=== PATIENT | male | born 1940 | race American Indian/Alaskan Native ===

== ENCOUNTER 2019-04-13 10:54 | Inpatient (IN) | payer MEDICARE ==
[2019-04-13] MEDS ORDERED: NACL 0.9% 1000 ML 1,000 ML IV ONE ×4 (10:58→16:23)
[2019-04-13] MEDS ORDERED: NACL 0.9% 1000 ML 2,000 ML ONE (11:01)
--- NOTE | 2019-04-13 11:06 | Emergency Department Report ---
HPI - General Time Seen by Provider: 04/13/19 10:57 - HPI HPI: Room 21 The patient is 78-year-old male presented with a chief complaint of unresponsiveness. The patient has a history of Alzheimer's is reportedly on hospice. Patient presents from hospice with a signed DO NOT RESUSCITATE dated 03/09/2018. Per EMS staff noticed the patient was unresponsive this morning and family request the patient be transported to the emergency department. The patient is unresponsive and does not respond to sternal rub Location: [See above] Duration: [See above] Quality: [See above] Severity: [See above] Timing: [See above] Context: [See above] Modifying factors: [See above] Associated signs and symptoms: [see above] ED Past Medical Hx - Past Medical History Hx Hypertension: Yes Additional medical history: dementia - Surgical History Past Surgical History?: No - Family History Family history: no significant - Social History Smoking Status: Unknown if ever smoked - Medications Home Medications: Home Medications Medication Instructions Recorded Confirmed Last Taken Type ALPRAZolam [Xanax TAB] 1 mg PO QHS PRN MDD 2 04/13/19 04/13/19 04/12/19 History Aspirin [Aspirin BABY CHEW TAB] 81 mg PO QDAY 04/13/19 04/13/19 04/12/19 History Ferrous Sulfate [Iron 325 MG] 325 mg PO QDAY 04/13/19 04/13/19 04/12/19 History Hyoscyamine Subl [Levsin Sl 0.125 0.125 mg SL Q4HR PRN 04/13/19 04/13/19 04/12/19 History TAB] Morphine [Morphine ORAL SOLN 10 10 mg PO Q2HR 04/13/19 04/13/19 04/12/19 History MG/5 ML] Potassium Chloride [K-Dur] 20 meq PO QDAY 04/13/19 04/13/19 04/12/19 History Pravastatin [Pravachol] 40 mg PO QHS 04/13/19 04/13/19 04/12/19 History Promethazine [Phenergan] 25 mg PO Q4HR PRN 04/13/19 04/13/19 04/12/19 History QUEtiapine [SEROquel] 25 mg PO QDAY 04/13/19 04/13/19 04/12/19 History Quetiapine Fumarate [SEROquel] 50 mg PO QDAY 04/13/19 04/13/19 04/12/19 History hydroCHLOROthiazide [HCTZ] 25 mg PO QDAY 04/13/19 04/13/19 04/12/19 History traMADol [Ultram] 50 mg PO Q6HR PRN 04/13/19 04/13/19 04/12/19 History traZODone [Desyrel] 100 mg PO QHS 04/13/19 04/13/19 04/12/19 History ED Review of Systems ROS: Stated complaint: UNRESPONSIVE Other details as noted in HPI Comment: Unobtainable due to pts medical conditions Physical Exam - Physical Exam Physical Exam: GENERAL: The patient is well-developed well-nourished male on a stretcher unresponsive. [] HEENT: Normocephalic. Atraumatic. NECK: Trachea midline CHEST/LUNGS: Clear to auscultation. There is no respiratory distress noted. HEART/CARDIOVASCULAR: Regular. There is tachycardia. There is no gallop rub or murmur. ABDOMEN: Abdomen is soft, nontender. Patient has normal bowel sounds. There is no abdominal distention. SKIN: There is no rash. There is no edema. There is no diaphoresis. NEURO: The patient is grossly obtunded. Unresponsive. GCS 4 MUSCULOSKELETAL: There is no evidence of acute injury. ED Course - Reevaluation(s) Reevaluation #1: 04/13/19 12:59 Case discussed with patient's brother who is power of civil litigation attorney over the phone and remainder family at bedside including sister who has signed the DO NOT RESUSCITATE paperwork. Family is in agreement and they will like to revoke DO NOT RESUSCITATE and make the patient for "subsequently the patient was intubated by myself using RSI - Central Line Placement Right IJ Time Out Performed: Yes Patient Placed on Monitor/Pulse Ox: Yes MD Prep: mask, gown, gloves Central Line Prep: Chlorhexidine scrub Local Anesthesia Used: Lidocaine 1% Amount of Anesthesia Used (mls): 1 Ultrasound Used for Placement: Yes Central Line Lumen Inserted: triple Bloods Obtained for Lab: No Central Line Position: good blood return, all ports aspirated, flus, sutured in place with 2-0 Dressing Applied: Tegaderm Post Procedure X-Ray: tip of catheter in good p Patient Tolerated Procedure: well, no complications Complications: none - Intubation Sedative: Etomidate Mg Given: 20 Paralytic: Succinylcholine Mg Given: 100 (lidocaine 100 mg IV also administered) Laryngoscope: Peter Size: 3 ET Tube Size: 8 Tube Secured Depth (cm): 24 Tube Secured Location: lips Tube Placement Confirmation: visualized tube passing t, equal breath sounds bilat, no breath sounds over epi, confirmation by capnometr Patient Tolerated Procedure: well, no complications Intubation Complications: none ED Medical Decision Making - Lab Data Result diagrams: 04/13/19 11:22 04/13/19 12:59 Laboratory Tests 04/13/19 04/13/19 04/13/19 11:22 12:58 12:59 WBC 11.7 H RBC 6.12 H Hgb 16.6 H Hct 53.5 H MCV 87 MCH 27 L MCHC 31 L RDW 18.0 H Plt Count 232 Add Manual Diff Complete Total Counted 100 Seg Neuts % (Manual) 83.0 H Band Neutrophils % 0 Lymphocytes % (Manual) 15.0 Reactive Lymphs % (Man) 0 Monocytes % (Manual) 1.0 Eosinophils % (Manual) 0 Basophils % (Manual) 0 Metamyelocytes % 1.0 Myelocytes % 0 Promyelocytes % 0 Blast Cells % 0 Nucleated RBC % Not Reportable Seg Neutrophils # Man 9.7 H Band Neutrophils # 0.0 Lymphocytes # (Manual) 1.8 Abs React Lymphs (Man) 0.0 Monocytes # (Manual) 0.1 Eosinophils # (Manual) 0.0 Basophils # (Manual) 0.0 Metamyelocytes # 0.1 Myelocytes # 0.0 Promyelocytes # 0.0 Blast Cells # 0.0 WBC Morphology Not Reportable Hypersegmented Neuts Not Reportable Hyposegmented Neuts Not Reportable Hypogranular Neuts Not Reportable Smudge Cells Not Reportable Toxic Granulation Not Reportable Toxic Vacuolation Not Reportable Dohle Bodies Not Reportable Pelger-Huet Anomaly Not Reportable Jose Rods Not Reportable Platelet Estimate Consistent w auto Clumped Platelets Not Reportable Plt Clumps, EDTA Not Reportable Large Platelets Not Reportable Giant Platelets Not Reportable Platelet Satelliting Not Reportable Plt Morphology Comment Not Reportable RBC Morphology Not Reportable Dimorphic RBCs Not Reportable Polychromasia Not Reportable Hypochromasia Not Reportable Poikilocytosis Few Anisocytosis Few Microcytosis Not Reportable Macrocytosis Not Reportable Spherocytes Not Reportable Pappenheimer Bodies Not Reportable Sickle Cells Not Reportable Target Cells Not Reportable Tear Drop Cells Not Reportable Ovalocytes Not Reportable Helmet Cells Not Reportable [place] Bodies Not Reportable [place] Rings Not Reportable [place] Cells Not Reportable Bite Cells Not Reportable Crenated Cell Not Reportable Elliptocytes Few Acanthocytes (Spur) Not Reportable Rouleaux Not Reportable Hemoglobin C Crystals Not Reportable Schistocytes Not Reportable Malaria parasites Not Reportable Barney Bodies Not Reportable Hem Pathologist Commnt No PT 27.2 H INR 2.58 H APTT 70.1 H* POC ABG pH POC ABG pCO2 POC ABG pO2 POC ABG HCO3 POC ABG Total CO2 POC ABG O2 Sat POC ABG Base Excess FiO2 Sodium 148 H Potassium 5.0 Chloride 105.5 Carbon Dioxide 12 L Anion Gap 36 BUN 55 H Creatinine 3.9 H Estimated GFR 18 BUN/Creatinine Ratio 14 Glucose 93 Lactic Acid Calcium 8.0 L Magnesium 2.90 H Total Bilirubin 1.40 H AST 471 H ALT 306 H Alkaline Phosphatase 76 Ammonia Total Creatine Kinase 97529 H CK-MB (CK-2) 91.2 H CK-MB (CK-2) Rel Index 0.6 Troponin T 0.108 H* Total Protein 5.3 L Albumin 2.6 L Albumin/Globulin Ratio 1.0 Triglycerides 65 Cholesterol 113 LDL Cholesterol Direct 69 HDL Cholesterol 44 Cholesterol/HDL Ratio 2.56 Urine Color Urine Turbidity Urine pH Ur Specific [place] Urine Protein Urine Glucose (UA) Urine Ketones Urine Blood Urine Nitrite Urine Bilirubin Urine Urobilinogen Ur Leukocyte Esterase Urine WBC (Auto) Urine RBC (Auto) Urine Bacteria (Auto) Blood Type Antibody Screen 04/13/19 04/13/19 04/13/19 12:59 12:59 13:07 WBC RBC Hgb Hct MCV MCH MCHC RDW Plt Count Add Manual Diff Total Counted Seg Neuts % (Manual) Band Neutrophils % Lymphocytes % (Manual) Reactive Lymphs % (Man) Monocytes % (Manual) Eosinophils % (Manual) Basophils % (Manual) Metamyelocytes % Myelocytes % Promyelocytes % Blast Cells % Nucleated RBC % Seg Neutrophils # Man Band Neutrophils # Lymphocytes # (Manual) Abs React Lymphs (Man) Monocytes # (Manual) Eosinophils # (Manual) Basophils # (Manual) Metamyelocytes # Myelocytes # Promyelocytes # Blast Cells # WBC Morphology Hypersegmented Neuts Hyposegmented Neuts Hypogranular Neuts Smudge Cells Toxic Granulation Toxic Vacuolation Dohle Bodies Pelger-Huet Anomaly Jose Rods Platelet Estimate Clumped Platelets Plt Clumps, EDTA Large Platelets Giant Platelets Platelet Satelliting Plt Morphology Comment RBC Morphology Dimorphic RBCs Polychromasia Hypochromasia Poikilocytosis Anisocytosis Microcytosis Macrocytosis Spherocytes Pappenheimer Bodies Sickle Cells Target Cells Tear Drop Cells Ovalocytes Helmet Cells [place] Bodies [place] Rings Sun Cells Bite Cells Crenated Cell Elliptocytes Acanthocytes (Spur) Rouleaux Hemoglobin C Crystals Schistocytes Malaria parasites Barney Bodies Hem Pathologist Commnt PT INR APTT POC ABG pH POC ABG pCO2 POC ABG pO2 POC ABG HCO3 POC ABG Total CO2 POC ABG O2 Sat POC ABG Base Excess FiO2 Sodium Potassium Chloride Carbon Dioxide Anion Gap BUN Creatinine Estimated GFR BUN/Creatinine Ratio Glucose Lactic Acid 15.20 H* Calcium Magnesium Total Bilirubin AST ALT Alkaline Phosphatase Ammonia 274.0 H Total Creatine Kinase CK-MB (CK-2) CK-MB (CK-2) Rel Index Troponin T Total Protein Albumin Albumin/Globulin Ratio Triglycerides Cholesterol LDL Cholesterol Direct HDL Cholesterol Cholesterol/HDL Ratio Urine Color Urine Turbidity Urine pH Ur Specific [place] Urine Protein Urine Glucose (UA) Urine Ketones Urine Blood Urine Nitrite Urine Bilirubin Urine Urobilinogen Ur Leukocyte Esterase Urine WBC (Auto) Urine RBC (Auto) Urine Bacteria (Auto) Blood Type B POSITIVE Antibody Screen Negative 04/13/19 04/13/19 04/13/19 13:15 14:35 15:52 WBC RBC Hgb Hct MCV MCH MCHC RDW Plt Count Add Manual Diff Total Counted Seg Neuts % (Manual) Band Neutrophils % Lymphocytes % (Manual) Reactive Lymphs % (Man) Monocytes % (Manual) Eosinophils % (Manual) Basophils % (Manual) Metamyelocytes % Myelocytes % Promyelocytes % Blast Cells % Nucleated RBC % Seg Neutrophils # Man Band Neutrophils # Lymphocytes # (Manual) Abs React Lymphs (Man) Monocytes # (Manual) Eosinophils # (Manual) Basophils # (Manual) Metamyelocytes # Myelocytes # Promyelocytes # Blast Cells # WBC Morphology Hypersegmented Neuts Hyposegmented Neuts Hypogranular Neuts Smudge Cells Toxic Granulation Toxic Vacuolation Dohle Bodies Pelger-Huet Anomaly Jose Rods Platelet Estimate Clumped Platelets Plt Clumps, EDTA Large Platelets Giant Platelets Platelet Satelliting Plt Morphology Comment RBC Morphology Dimorphic RBCs Polychromasia Hypochromasia Poikilocytosis Anisocytosis Microcytosis Macrocytosis Spherocytes Pappenheimer Bodies Sickle Cells Target Cells Tear Drop Cells Ovalocytes Helmet Cells [place] Bodies [place] Rings Sun Cells Bite Cells Crenated Cell Elliptocytes Acanthocytes (Spur) Rouleaux Hemoglobin C Crystals Schistocytes Malaria parasites Barney Bodies Hem Pathologist Commnt PT INR APTT POC ABG pH 7.143 L POC ABG pCO2 31.8 L POC ABG pO2 202 H POC ABG HCO3 10.9 POC ABG Total CO2 12 POC ABG O2 Sat 99 POC ABG Base Excess -18 FiO2 100 Sodium Potassium Chloride Carbon Dioxide Anion Gap BUN Creatinine Estimated GFR BUN/Creatinine Ratio Glucose Lactic Acid 14.00 H* Calcium Magnesium Total Bilirubin AST ALT Alkaline Phosphatase Ammonia Total Creatine Kinase CK-MB (CK-2) CK-MB (CK-2) Rel Index Troponin T Total Protein Albumin Albumin/Globulin Ratio Triglycerides Cholesterol LDL Cholesterol Direct HDL Cholesterol Cholesterol/HDL Ratio Urine Color Reba Urine Turbidity Cloudy Urine pH 5.0 Ur Specific [place] 1.018 Urine Protein 100 mg/dl Urine Glucose (UA) Neg Urine Ketones Neg Urine Blood Mod Urine Nitrite Neg Urine Bilirubin Neg Urine Urobilinogen 4.0 Ur Leukocyte Esterase Neg Urine WBC (Auto) 4.0 Urine RBC (Auto) 80.0 Urine Bacteria (Auto) 1+ Blood Type Antibody Screen - EKG Data -: EKG Interpreted by Me EKG shows normal: sinus rhythm Rate: bradycardia (37 bpm) - EKG Data When compared to previous EKG there are: previous EKG unavailable Interpretation: other (prolonged QT. Right bundle branch block) - Radiology Data Radiology results: report reviewed (CT head, chest x-ray), image reviewed (chest x-ray, CT head) interpreted by me: Chest x-ray-ET tube in appropriate position. Central line in appropriate position [facility] [address] [place] [address] Cat Scan Report Signed Patient: CRISTY LOZADA MR#: [id number] [birth year] : 1940 Acct:[id number] Age/Sex: 78 / M ADM Date: 04/13/19 Loc: ED Attending Dr: Ordering Physician: CARINA COLORADO MD Date of Service: 04/13/19 Procedure(s): CT head/brain wo con Accession Number(s): [id number] cc: CARINA COLORADO MD CT head without contrast Clinical history: Unresponsive FINDINGS: There is mild cerebral white matter disease most consistent with microvascular angiopathy. There is encephalomalacia involving posterior right cerebellum most consistent with old infarct at. There is moderate cerebral atrophy with associated prominence of the ventricular system. There is no clear CT evidence of acute intracranial hemorrhage or significant mass effect. There is minimal mucosal thickening along the visualized posterior right maxillary sinus. All CT scans at this location are performed using the CT dose reduction for ALARA by means of automated exposure control. 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 There is no CT evidence of acute intracranial hemorrhage. There is moderate cerebral atrophy. Signer Name: Ezra Uriarte MD Signed: 04/13/2019 4:27 PM Workstation Name: [id number] Transcribed By: MR Dictated By: Ezra Uriarte MD Electronically Authenticated By: Ezra Uriarte MD Signed Date/Time: 04/13/191626 DD/ 21 TD/TT: [facility] [address] [place] [address] XRay Report Signed Patient: CRISTY LOZADA MR#: [id number] [birth year] : 1940 Acct:[id number] Age/Sex: 78 / M ADM Date: 04/13/19 Loc: ED Attending Dr: Ordering Physician: CARINA COLORADO MD Date of Service: 04/13/19 Procedure(s): XR chest 1V ap Accession Number(s): [id number] cc: CARINA COLORADO MD Fluoro Time In Minutes: CHEST 1 VIEW INDICATION / CLINICAL INFORMATION: s/p intubation and CVL placement. COMPARISON: None available. FINDINGS: SUPPORT DEVICES: Endotracheal tube, right central venous line HEART / MEDIASTINUM: No significant abnormality. LUNGS / PLEURA: No significant pulmonary or pleural abnormality. No pneumothorax. ADDITIONAL FINDINGS: No significant additional findings. IMPRESSION: Satisfactory placement of endotracheal tube and right central venous line. No acute disease. No evidence of a pneumothorax Signer Name: Modesto Dalton MD FACR Signed: 04/13/2019 2:31 PM Workstation Name: [email or web address] Transcribed By: MS Dictated By: Modesto Dalton MD Electronically Authenticated By: Modesto Dalton MD Signed Date/Time: 04/13/19 143 DD/ 29 TD/TT: - Differential Diagnosis sepsis, UTI, dehydration, hypovolemia Critical Care Time: Yes Critical care time in (mins) excluding proc time.: 80 Critical care attestation.: If time is entered above; I have spent that time in minutes in the direct care of this critically ill patient, excluding procedure time. ED Disposition Clinical Impression: Altered mental status, Hepatic encephalopathy, Acute renal failure, Hypotension, Rhabdomyolysis, Transaminitis Disposition: OP ADMIT IP TO THIS HOSP Is pt being admited?: Yes Does the pt Need Aspirin: No Condition: Serious Referrals: PRIMARY CARE, [Primary Care Provider] - 3-5 Days Time of Disposition: 16:43 (hospitalist paged (Dr Villalta))
[2019-04-13 11:44] LABS: Mean Corpuscular HGB Conc 31 % (32-34); Mean Corpuscular Volume 87 fl (84-94); Platelet Count 232 K/mm3 (140-440); Red Blood Count 6.12 M/mm3 (3.65-5.03)
[2019-04-13] MEDS ORDERED: INTROPIN DRIP 800 MG/D5W 250 ML 800 MG/250 ML BAG IV ONE ×3 (11:48→20:16)
[2019-04-13 11:55] LABS: Hematocrit 53.5 % (35.5-45.6); Hemoglobin 16.6 gm/dl (11.8-15.2)
[2019-04-13] MEDS: INTROPIN DRIP 800 MG/D5W 250 ML 800 MG/250 ML BAG IV ONE ×2 (12:00→20:30)
[2019-04-13] MEDS: ATROPINE IV ONE ×2 (12:15→14:22)
[2019-04-13 13:43] LABS: INR 2.58 (0.87-1.13)
[2019-04-13 13:43] LABS: Basophils % (Manual) 0 % (0.0-1.8); Eosinophils % (Manual) 0 % (0.0-4.3); Total Cells Counted 100
[2019-04-13 13:44] LABS: Anisocytosis Few; Platelet Estimate Consistent w Auto; Poikilocytosis Few
[2019-04-13 13:49] LABS: Creatine Kinase MB 91.2 ng/mL (0.0-4.0)
[2019-04-13 13:50] LABS: Albumin 2.6 g/dL (3.9-5)
[2019-04-13 13:54] LABS: Partial Thromboplastin Time 70.1 Sec. (24.2-36.6)
[2019-04-13] MEDS ORDERED: LEVOPHED DRIP 4 MG/NS 250 ML 4 MG/250 ML BAG IV ONE ×2 (13:58→22:46)
[2019-04-13] MEDS ORDERED: CEPHULAC FEEDTUBE ONE (14:02)
[2019-04-13 14:10] LABS: Bacteria,Urine 1+ /HPF (Negative); Bilirubin,Urine NEG (Negative); Blood,Urine MOD (Negative); Color,Urine Amber (Yellow)
[2019-04-13 14:18] LABS: Chol/HDL Ratio 2.56 %
--- NOTE | 2019-04-13 14:35 | XRay Report ---
CHEST 1 VIEW INDICATION / CLINICAL INFORMATION: s/p intubation and CVL placement. COMPARISON: None available. FINDINGS: SUPPORT DEVICES: Endotracheal tube, right central venous line HEART / MEDIASTINUM: No significant abnormality. LUNGS / PLEURA: No significant pulmonary or pleural abnormality. No pneumothorax. ADDITIONAL FINDINGS: No significant additional findings. IMPRESSION: Satisfactory placement of endotracheal tube and right central venous line. No acute disease. No evide nce of a pneumothorax Signer Name: Modesto Dalton MD FACR Signed: 04/13/2019 2:31 PM Workstation Name: [id number]
[2019-04-13] MEDS: LEVOPHED DRIP 4 MG/NS 250 ML 4 MG/250 ML BAG IV SCH ×3 (14:40→20:29)
--- NOTE | 2019-04-13 16:31 | Cat Scan Report ---
CT head without contrast Clinical history: Unresponsive FINDINGS: There is mild cerebral white matter disease most consistent with microvascular angiopathy. There is encephalomalacia involving posterior right cerebellum most consistent with old infarct at. T here is moderate cerebral atrophy with associated prominence of the ventricular system. There is no c lear CT evidence of acute intracranial hemorrhage or significant mass effect. There is minimal mucosa l thickening along the visualized posterior right maxillary sinus. All CT scans at this location are performed using the CT dose reduction for ALARA by means of automated exposure control. 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 There is no CT evidence of acute intracranial hemorrhage. There is moderate cerebral atrophy. Signer Name: Ezra Uriarte MD Signed: 04/13/2019 4:27 PM Workstation Name: [id number]
[2019-04-13] MEDS ORDERED: ROCEPHIN/NS 2 GM/100 ML 2 GM/100 ML BAG IV ONE (16:41)
[2019-04-13 16:43] LABS: Free T4 (Free Thyroxine) 0.94 ng/dL (0.76-1.46)
--- NOTE | 2019-04-13 17:05 | History and Physical Report ---
History of Present Illness Chief complaint: He is confused,and not talking History of present illness: 78 YO Male currently under the care of Hospice with End Stage Liver Disease, Dementia, HTN presents to ED for evaluation. Pt family reports desire to Revoke Hospice benefit and acknowledges revocation of hospice befefit, and rescind DNR and wish to make the patient Full Code and pursue aggressive medical care. Pt seen and evaluated by hospice nurse today and was found to be in distress. EMS notified, and upon arrival the patient was found to be in distress, and transported to [facility]. Pt seen and evaluated in ED and found to have Acute Hypoxemic Respiratory Failure, End Stage Liver Disease complicated by Hepatic Encephalopathy, Rhabdomyolysis, Acidosis, Acute Renal Failure, and SIRS. Pt in multiple organ system failure. Pt found to have poor prognosis. Pt intubated and on vent support at time of my exam. No further history obtainable. Pt admitted to ICU. Pulmonary team consulted in ED. Past History Past Medical History: other (Encephalopathy, Hepatic Failure, Debility) Past Surgical History: No surgical history, Other (reviewed) Social history: single. denies: smoking, alcohol abuse, prescription drug abuse Family history: hypertension Medications and Allergies Allergies Allergy/AdvReac Type Severity Reaction Status Date / Time No Known Allergies Allergy Verified 04/13/19 11:04 Home Medications Medication Instructions Recorded Confirmed Last Taken Type ALPRAZolam [Xanax TAB] 1 mg PO QHS PRN MDD 2 04/13/19 04/13/19 04/12/19 History Aspirin [Aspirin BABY CHEW TAB] 81 mg PO QDAY 04/13/19 04/13/19 04/12/19 History Ferrous Sulfate [Iron 325 MG] 325 mg PO QDAY 04/13/19 04/13/19 04/12/19 History Hyoscyamine Subl [Levsin Sl 0.125 0.125 mg SL Q4HR PRN 04/13/19 04/13/19 04/12/19 History TAB] Morphine [Morphine ORAL SOLN 10 10 mg PO Q2HR 04/13/19 04/13/19 04/12/19 History MG/5 ML] Potassium Chloride [K-Dur] 20 meq PO QDAY 04/13/19 04/13/19 04/12/19 History Pravastatin [Pravachol] 40 mg PO QHS 04/13/19 04/13/19 04/12/19 History Promethazine [Phenergan] 25 mg PO Q4HR PRN 04/13/19 04/13/19 04/12/19 History QUEtiapine [SEROquel] 25 mg PO QDAY 04/13/19 04/13/19 04/12/19 History Quetiapine Fumarate [SEROquel] 50 mg PO QDAY 04/13/19 04/13/19 04/12/19 History hydroCHLOROthiazide [HCTZ] 25 mg PO QDAY 04/13/19 04/13/19 04/12/19 History traMADol [Ultram] 50 mg PO Q6HR PRN 04/13/19 04/13/19 04/12/19 History traZODone [Desyrel] 100 mg PO QHS 04/13/19 04/13/19 04/12/19 History Active Meds: Active Medications Dopamine HCl/Dextrose (Intropin Drip 800 Mg/D5w 250 Ml) 800 mg in 250 mls @ 2.126 mls/hr IV TITR ONE; Protocol Stop: 04/18/19 11:24 Last Titration: 04/13/19 14:00 Dose: 20 mcg/kg/min, 21.263 mls/hr Documented by: Norepinephrine (Levophed Drip 4 Mg/Ns 250 Ml) 4 mg in 250 mls @ 7.5 mls/hr IV TITR KELLEN; Protocol Last Titration: 04/13/19 16:59 Dose: 22 mcg/min, 82.5 mls/hr Documented by: Sodium Chloride (Nacl 0.9% 1000 Ml) 1,000 mls @ 150 mls/hr IV ONCE ONE Stop: 04/13/19 23:02 Last Admin: 04/13/19 16:33 Dose: 150 mls/hr Documented by: Ceftriaxone Sodium (Rocephin/Ns 2 Gm/100 Ml) 2 gm in 100 mls @ 200 mls/hr IV ONCE ONE; Protocol Stop: 04/13/19 17:10 Review of Systems ROS unobtainable: due to endotracheal tube, due to mental status Exam - Constitutional Vitals: Temp Pulse Resp BP Pulse Ox 96.9 F L 120 H 19 82/54 75 L 04/13/19 16:09 04/13/19 16:40 04/13/19 16:50 04/13/19 16:50 04/13/19 15:16 General appearance: Present: severe distress - EENT Eyes: Present: miosis - Neck Neck: Present: supple, normal ROM, masses or JVD - Respiratory Respiratory effort: labored Respiratory: bilateral: diminished, rhonchi - Cardiovascular Heart Sounds: Present: S1 & S2. Absent: rub, click - Extremities Extremity abnormal: edema Peripheral Pulses: within normal limits - Abdominal General gastrointestinal: Present: soft, non-tender, non-distended, normal bowel sounds Male genitourinary: Present: normal - Integumentary Integumentary: Present: clear, warm, dry - Musculoskeletal Musculoskeletal: generalized weakness - Psychiatric Psychiatric: no appropriate mood/affect, no intact judgment & insight, no memory intact - Neurologic Neurologic: CNII-XII intact, no gait normal Results - Labs CBC & Chem 7: 04/13/19 11:22 04/13/19 12:59 Labs: Abnormal lab results 04/13/19 04/13/19 04/13/19 Range/Units 11:22 12:58 12:59 WBC 11.7 H (4.5-11.0) K/mm3 RBC 6.12 H (3.65-5.03) M/mm3 Hgb 16.6 H (11.8-15.2) gm/dl Hct 53.5 H (35.5-45.6) % MCH 27 L (28-32) pg MCHC 31 L (32-34) % RDW 18.0 H (13.2-15.2) % Seg Neuts % (Manual) 83.0 H (40.0-70.0) % Seg Neutrophils # Man 9.7 H (1.8-7.7) K/mm3 PT 27.2 H (12.2-14.9) Sec. INR 2.58 H (0.87-1.13) APTT 70.1 H* (24.2-36.6) Sec. POC ABG pH (7.35-7.45) POC ABG pCO2 (35-45) POC ABG pO2 (80-105) Sodium 148 H (137-145) mmol/L Carbon Dioxide 12 L (22-30) mmol/L BUN 55 H (9-20) mg/dL Creatinine 3.9 H (0.8-1.5) mg/dL Lactic Acid (0.7-2.0) mmol/L Calcium 8.0 L (8.4-10.2) mg/dL Magnesium 2.90 H (1.7-2.3) mg/dL Total Bilirubin 1.40 H (0.1-1.2) mg/dL AST 471 H (5-40) units/L ALT 306 H (7-56) units/L Ammonia (25-60) umol/L Total Creatine Kinase 96945 H (55-170) units/L CK-MB (CK-2) 91.2 H (0.0-4.0) ng/mL Troponin T 0.108 H* (0.00-0.029) ng/mL Total Protein 5.3 L (6.3-8.2) g/dL Albumin 2.6 L (3.9-5) g/dL TSH (0.270-4.200) mlU/mL 04/13/19 04/13/19 04/13/19 Range/Units 12:59 12:59 14:35 WBC (4.5-11.0) K/mm3 RBC (3.65-5.03) M/mm3 Hgb (11.8-15.2) gm/dl Hct (35.5-45.6) % MCH (28-32) pg MCHC (32-34) % RDW (13.2-15.2) % Seg Neuts % (Manual) (40.0-70.0) % Seg Neutrophils # Man (1.8-7.7) K/mm3 PT (12.2-14.9) Sec. INR (0.87-1.13) APTT (24.2-36.6) Sec. POC ABG pH (7.35-7.45) POC ABG pCO2 (35-45) POC ABG pO2 (80-105) Sodium (137-145) mmol/L Carbon Dioxide (22-30) mmol/L BUN (9-20) mg/dL Creatinine (0.8-1.5) mg/dL Lactic Acid 15.20 H* (0.7-2.0) mmol/L Calcium (8.4-10.2) mg/dL Magnesium (1.7-2.3) mg/dL Total Bilirubin (0.1-1.2) mg/dL AST (5-40) units/L ALT (7-56) units/L Ammonia 274.0 H (25-60) umol/L Total Creatine Kinase (55-170) units/L CK-MB (CK-2) (0.0-4.0) ng/mL Troponin T (0.00-0.029) ng/mL Total Protein (6.3-8.2) g/dL Albumin (3.9-5) g/dL TSH 11.630 H (0.270-4.200) mlU/mL 04/13/19 04/13/19 04/13/19 Range/Units 14:35 15:52 16:12 WBC (4.5-11.0) K/mm3 RBC (3.65-5.03) M/mm3 Hgb (11.8-15.2) gm/dl Hct (35.5-45.6) % MCH (28-32) pg MCHC (32-34) % RDW (13.2-15.2) % Seg Neuts % (Manual) (40.0-70.0) % Seg Neutrophils # Man (1.8-7.7) K/mm3 PT (12.2-14.9) Sec. INR (0.87-1.13) APTT (24.2-36.6) Sec. POC ABG pH 7.143 L (7.35-7.45) POC ABG pCO2 31.8 L (35-45) POC ABG pO2 202 H (80-105) Sodium (137-145) mmol/L Carbon Dioxide (22-30) mmol/L BUN (9-20) mg/dL Creatinine (0.8-1.5) mg/dL Lactic Acid 14.00 H* 13.80 H* (0.7-2.0) mmol/L Calcium (8.4-10.2) mg/dL Magnesium (1.7-2.3) mg/dL Total Bilirubin (0.1-1.2) mg/dL AST (5-40) units/L ALT (7-56) units/L Ammonia (25-60) umol/L Total Creatine Kinase (55-170) units/L CK-MB (CK-2) (0.0-4.0) ng/mL Troponin T (0.00-0.029) ng/mL Total Protein (6.3-8.2) g/dL Albumin (3.9-5) g/dL TSH (0.270-4.200) mlU/mL Assessment and Plan - Patient Problems (1) Sepsis Current Visit: Yes Status: Acute Qualifiers: Sepsis acute organ dysfunction status: with acute organ dysfunction Severe sepsis acute organ dysfunction type: acute liver failure Hepatic coma status: with hepatic coma Plan to address problem: Sepsis protocol: Admit to ICU, IV antibiotic therapy, IVF resuscitation therapy ,serial lactic acid, blood cultures, urinalysis, chest x ray, IV pressor support to maintain MAP greater than or equal to 60. The high probability of a clinically significant, sudden or life threatening deterioration of the [hepatic, neuro, respiratory, renal] system(s) required my full and direct attention, intervention and personal management. The aggregate critical care time was [65] minutes. This time is in addition to time spent performing reported procedures but includes the following: [x] Data Review and interpretation [x] Patient assessment and monitoring of vital signs [x] Documentation [x] Medication orders and management (2) Acute respiratory failure Current Visit: Yes Status: Acute Qualifiers: Respiratory failure complication: hypoxia Qualified Code(s): J96.01 - Acute respiratory failure with hypoxia Plan to address problem: Pt intubated, on vent support. wean vent as tolerated, chest x ray, nebulizer therapy, pulmonary team consulted in ED, Poor prognosis. (3) Encephalopathy Current Visit: Yes Status: Acute Plan to address problem: CT Head, supportive care, treat sepsis, neuro checks, (4) Acidosis Current Visit: Yes Status: Acute Plan to address problem: IVF resuscitation therapy, treat sepsis, supportive care, repeat bmp.IV bicarbonate (5) Hepatic failure Current Visit: Yes Status: Acute Qualifiers: Hepatic coma status: with hepatic coma Plan to address problem: Supportive care. Ens Stage liver Disease. Poor prognosis. (6) GENNA (acute kidney injury) Current Visit: Yes Status: Acute Plan to address problem: IVF resuscitation therapy, monitor uop q shift, repeat bmp. (7) Hepatic encephalopathy Current Visit: Yes Status: Acute Plan to address problem: Supportive care, CT head when medically stable, neuro checks, ammonia level. (8) Rhabdomyolysis Current Visit: Yes Status: Acute Qualifiers: Encounter type: initial encounter Plan to address problem: IVF resuscitation therapy as tolerated, supportive care, IV bicarbonate therapy, (9) Advance care planning Current Visit: Yes Status: Acute Plan to address problem: 30 minutes dedicated to advanced care planning: discussed end of life care, revocation of hospice benefit, poor prognosis, and code status. (10) DVT prophylaxis Current Visit: Yes Status: Acute Plan to address problem: SCD to BLE while in bed.
[2019-04-13] MEDS ORDERED: ATROPINE 0.1% (CARDIAC) ONE (17:13)
[2019-04-13] MEDS ORDERED: SODIUM CHLORIDE FLUSH SYRINGE 10 ML IV PRN (18:56)
[2019-04-13] MEDS ORDERED: XANAX PO PRN (18:58)
[2019-04-13] MEDS ORDERED: PHENERGAN PO PRN (18:58)
[2019-04-13] MEDS ORDERED: LEVSIN SL SL PRN (18:58)
[2019-04-13] MEDS ORDERED: ULTRAM PO PRN (18:58)
[2019-04-13] MEDS ORDERED: MORPHINE IV PRN (19:14)
[2019-04-13] MEDS ORDERED: ATIVAN IV PRN (19:15)
[2019-04-13] MEDS ORDERED: NACL 0.9% 1000 ML IV ONE (19:16)
[2019-04-13] MEDS ORDERED: NACL 0.9% 1000 ML 1,000 ML ONE ×2 (19:39→22:52)
[2019-04-13] MEDS ORDERED: MORPHINE PO SCH (20:00)
[2019-04-13] MEDS ORDERED: ADRENALIN 8 MG in NACL 0.9% 250ML 242 ML IV SCH (21:00)
[2019-04-13] MEDS ORDERED: DESYREL PO SCH (22:00)
[2019-04-13] MEDS ORDERED: PRAVACHOL PO SCH (22:00)
[2019-04-13] MEDS ORDERED: SODIUM CHLORIDE FLUSH SYRINGE 10 ML IV SCH (22:00)
[2019-04-13] MEDS ORDERED: Vasostrict 20 UNIT in NACL 0.9% 100 ML IV SCH (23:45)
[2019-04-14] MEDS ORDERED: LEVOPHED DRIP 4 MG/NS 250 ML 4 MG/250 ML BAG IV ONE (01:12)
[2019-04-14 02:19] VITALS: BP 47/16
--- NOTE | 2019-04-14 02:59 | Event Note ---
CODE BLUE Code in progess when I arrived in room ACLS protocol initiated, on 4 pressors Please refer to the code sheet for details There was no ROSC, time of [id number]
[2019-04-14] MEDS ORDERED: HCTZ PO SCH (10:00)
[2019-04-14] MEDS ORDERED: BABY ASPIRIN PO SCH (10:00)
[2019-04-14] MEDS ORDERED: K-DUR PO SCH (10:00)
[2019-04-14] MEDS ORDERED: FEOSOL PO SCH (10:00)
[2019-04-14] MEDS ORDERED: NON-FORMULARY (Quetiapine Fumarate [Seroquel] 50 MG) PO SCH ×3 (10:00)
[2019-04-14] MEDS ORDERED: LEVAQUIN 750MG/150ML 750 MG/150 ML BAG IV SCH (10:00)
--- NOTE | 2019-04-15 08:56 | Death Summary ---
Summary - Providers Consults: 04/13/19 19:11 Consult to Physician [CONS] Routine Comment: Consulting Provider: BONNIE MILLER Physician Instructions: Reason For Exam: Respiratory failure Attending: ZULEIKA FORREST MD - summary Date of admission: 04/13/19 18:56 Date of : 04/14/19 Disposition: 78 YO Male admitted for Sepsis, Respiratory Failure, Acute Renal Failure, and Multiple organ system failure. Pt admitted to ICU. Pt convalesced poorly during hospital course. Pt treated with aggressive medical therapy. Pt became hemodynamically unstable and experienced cardiorespiratory arrest. Pt treated IAW ACLS protocol without return of perfusing cardiac rhythm. Pt pronounced . - Final diagnosis (1) Sepsis Qualifiers: Sepsis acute organ dysfunction status: with acute organ dysfunction Severe sepsis acute organ dysfunction type: acute liver failure Hepatic coma status: with hepatic coma Note: Final diagnosis: (2) Acute respiratory failure Qualifiers: Respiratory failure complication: hypoxia Qualified Code(s): J96.01 - Acute respiratory failure with hypoxia Note: Final diagnosis: (3) Encephalopathy Note: Final diagnosis: (4) Acidosis Note: Final diagnosis: (5) Hepatic failure Qualifiers: Hepatic coma status: with hepatic coma Note: Final diagnosis: (6) GENNA (acute kidney injury) Note: Final diagnosis: (7) Hepatic encephalopathy Note: Final diagnosis: (8) Rhabdomyolysis Qualifiers: Encounter type: initial encounter Note: Final diagnosis: (9) Advance care planning Note: Final diagnosis: (10) DVT prophylaxis Note: Final diagnosis:
== END 2019-04-15 10:04 | DRG 871 ==
LOC: ED 10:54 → CC1 18:56
PROVIDERS: ADMIT Internal Medicine; ATTEND Internal Medicine
PROC: 5A1935Z Respiratory Ventilation, Less than 24 Consecutive Hours (ICD-10-PCS; principal; 2019-04-13)
PROC: 0BH17EZ Insertion of Endotracheal Airway into Trachea, Via Natural or Artificial Opening (ICD-10-PCS; 2019-04-13)
PROC: 4A033R1 Measurement of Arterial Saturation, Peripheral, Percutaneous Approach (ICD-10-PCS; 2019-04-13)
PROC: 05HM33Z Insertion of Infusion Device into Right Internal Jugular Vein, Percutaneous Approach (ICD-10-PCS; 2019-04-13)
PROC: B543ZZA Ultrasonography of Right Jugular Veins, Guidance (ICD-10-PCS; 2019-04-13)
DX: A41.9 Sepsis, unspecified organism (principal); K72.01 Acute and subacute hepatic failure with coma; J96.01 Acute respiratory failure with hypoxia; M62.82 Rhabdomyolysis; G93.40 Encephalopathy, unspecified; N17.9 Acute kidney failure, unspecified; I46.9 Cardiac arrest, cause unspecified; F03.90 Unspecified dementia, unspecified severity, without behavioral disturbance, psychotic disturbance, mood disturbance, and anxiety; Z66 Do not resuscitate; R74.0 Nonspecific elevation of levels of transaminase and lactic acid dehydrogenase [LDH]; I10 Essential (primary) hypertension; Z82.49 Family history of ischemic heart disease and other diseases of the circulatory system; Z79.899 Other long term (current) drug therapy; Z79.82 Long term (current) use of aspirin
CPT/HCPCS: 36415; 70450; 71045; 80053; 80061; 81001; 82140; 82550; 82553; 82803; 83735; 84439; 84443; 84484; 85007; 85025; 85610; 85730; 86850; 86900; 86901; 87040; 87086; 93005; 93010; 94002; 99292; G0378; J0171; J0461; J0696; J1265; J3246; J7030; J7050